=== PATIENT | male | born 1990 | race African-American/Black ===

== ENCOUNTER 2025-05-06 20:05 | Emergency (ER) | payer OTHER, BC ==
[~2025-05-06] VITALS: Ht 193 cm; Wt 122.5 kg
[2025-05-06 21:23] LABS: HIV-1/2 ANTIBODY NON REACTIVE (NONREACTIVE)
[2025-05-06 22:08] VITALS: BP 140/88; TEMP 98; O2SAT 99
== END 2025-05-06 22:08 | disposition home or self-care (01) ==
LOC: ER 20:16
DX: Z77.21 Contact with and (suspected) exposure to potentially hazardous body fluids (principal)
CPT/HCPCS: 86705; 86706; 86803; 87340; 87806; A4606; A4663